=== PATIENT | male | born 1930 | race Caucasian/White ===

== ENCOUNTER 2017-03-02 09:30 | Inpatient (IN) | payer MEDICARE, BC ==
[2017-03-02] MEDS ORDERED: Acetaminophen 325 MG Tab PO PRN (09:46)
[2017-03-02] MEDS ORDERED: Albuterol/Ipratropium 3.0-0.5 MG/3 ML Neb Soln NEB ONE (09:46)
[2017-03-02] MEDS ORDERED: Budesonide 0.5 MG/2 ML Neb Susp NEB ONE (09:46)
--- NOTE | 2017-03-02 09:46 | EDM.PDOC ---
ED HPI GENERAL MEDICAL PROBLEM - General Chief Complaint: General Stated Complaint: fall Time Seen by Provider: 03/02/17 09:40 Source of Information: Reports: Patient, EMS, Family (, daughter), Old Records ([facility] chart/EMR). Denies: EMS Notes Reviewed History Limitations: Reports: Altered Mental Status - History of Present Illness INITIAL COMMENTS - FREE TEXT/NARRATIVE: The patient was brought to the emergency room by ambulance with division sergeant accompaniment with no treatment in route. Note that the patient has had a history of recurrent falls, including at about 01:30 a.m. this morning. This fall was unwitnessed, however no history of head injury, loss of consciousness, seizure activity, change in mental status, etc. with some baseline organic brain syndrome by history. The did call 911 for assistance earlier this morning secondary to progressive low back pain and left hip pain with recent history of T11 vertebral body compression fracture on 01/09/17. The patient is a somewhat poor historian secondary to his baseline mental status with majority of history taken from his and daughter. The patient denies any chest pain/ pressure, heart flutter, dizziness, orthostasis, orthopnea, diaphoresis, paresthesias, recent decreased exercise tolerance, or any other anginal-type symptoms. No recent history of abdominal pain, heartburn, nausea, diarrhea, melena, gross hematochezia, or any food intolerance, including fatty foods, etc.. The patient also denies any recent fever, wheezing, dyspnea, etc. with mild viral bronchitis diagnosed by home health nurse yesterday. Onset: Today Onset Date: 03/02/17 Onset Time: 01:30 Duration: Constant, Getting Worse Location: Reports: Back, Lower Extremity, Left. Denies: Head, Face, Neck, Chest , Abdomen, Pelvis, Upper Extremity, Left, Upper Extremity, Right, Lower Extremity, Right, Radiates to Quality: Reports: Ache, Same as Previous Episode Severity: Moderate Improves with: Reports: Rest Worsens with: Reports: Movement Context: Reports: Trauma (As above) Associated Symptoms: Reports: Confusion (Stable baseline), Cough, cough w sputum (Slightly clear), Loss of Appetite (Chronic), Weakness (Stable chronic). Denies: Chest Pain, Diaphoresis, Fever/Chills, Headaches, Malaise, Nausea/ Vomiting, Seizure, Shortness of Breath, Syncope Treatments CARE SERVICES MANAGER: Reports: Other (see below) (None) Left Hip Pain Score (Numeric/FACES): 6 Lower Back Pain Score (Numeric/FACES): 6 - Related Data Allergies Allergy/AdvReac Type Severity Reaction Status Date / Time No Known Allergies Allergy Verified 03/02/17 09:33 Home Meds: Home Meds Levothyroxine Sodium [Synthroid] 25 mcg PO ACBREAKFAST 03/02/17 [History] Mirtazapine 0.5 tab PO BEDTIME 03/02/17 [History] guaiFENesin 5 ml PO Q6H PRN 03/02/17 [History] traMADol [Ultram] 1 tab PO BID PRN 03/02/17 [History] Past Medical History HEENT History: Reports: Cataract, Hard of Hearing, Impaired Vision, Macular Degeneration, Other (See Below). 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 Denies: Afib, Aneurysm, Arrhythmia, Blood Clots/VTE/DVT, CAD, Cardiomyopathy, Heart Failure, Heart Murmur, Hypertension, OH, PVD, Syncope Other Cardiovascular History: Hyperlipidemia under therapy Respiratory History: Reports: Bronchitis, Recurrent, COPD, Pneumonia, Recurrent. Denies: Asthma, Pneumothorax, Sleep Apnea, TB Gastrointestinal History: Reports: Celiac Disease, Diverticulosis, Gastritis, GERD, PUD, Other (See Below). Denies: Bowel Obstruction, Cholelithiasis, Chronic Constipation, Chronic Diarrhea, Colon Polyp, GI Bleed, Hepatitis, Helicobacter Pylori, Hiatal Hernia, Inflammatory Bowel Disease, Irritable Bowel Syndrome, Jaundice, Pancreatitis Other Gastrointestinal History: Peptic ulcer disease by EGD in April 2009 as below with negative gastric biopsy for H. pylori; additional diverticulosis and history of diverticulitis, borderline dysphagia with patient having trouble swallowing pills Genitourinary History: Reports: BPH, Renal Calculus, Other (See Below). Denies : Acute Renal Failure, Chronic Renal Insuffiency, Dialysis, Retention, Urinary, Urinary Incontinence, UTI, Recurrent Other Genitourinary History: Urolithiasis in his late 20s or early 30s with spontaneous passage Musculoskeletal History: Reports: Arthritis, Back Pain, Chronic, Fracture, Osteoarthritis, Osteoporosis, Other (See Below). 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 Denies: Cerebral Aneurysms, Concussion, CVA, Headaches, Chronic, Head Trauma, Migraines, MS, Parkinson's, Seizure, TIA Psychiatric History: Reports: Anxiety, Dementia, Depression, Other (See Below). Denies: Abuse, Victim of, ADD, ADHD, Addiction, Psych Hospitalization(s), PTSD , Suicide Attempt, Suicidal Ideation Other Psychiatric History: Note chronic Ultram use usually at bedtime Endocrine/Metabolic History: Reports: Hypothyroidism. Denies: Diabetes, Type I , Diabetes, Type II, IDDM, Osteoporosis Hematologic History: Reports: Anemia. Denies: Blood Transfusion(s), Iron Deficiency Other Hematologic History: Anemia and thrombocytopenia Immunologic History: Reports: None. Denies: AIDS, HIV, SLE Oncologic (Cancer) History: Reports: None. Denies: Basal Cell Carcinoma, Colon , Hodgkin's Lymphoma, Leukemia, Lymphoma, Malignant Melanoma, Non-Hodgkin's Lymphoma, Prostate, Squamous Cell Carcinoma Dermatologic History: Denies: Eczema, Psoriasis - Infectious Disease History Infectious Disease History: Reports: Chicken Pox, Mumps. Denies: C-Difficile, Helicobacter Pylori (Negative gastric biopsy as above), Measles, Meningitis, Mononucleosis, MRSA, Pertussis (Whooping Cough), Rheumatic Fever, Rubella, Scarlet Fever, Shingles, VRE - Past Surgical History Head Surgeries/Procedures: Reports: None HEENT Surgical History: Reports: Cataract Surgery, Oral Surgery, Other (See Below). Denies: Adenoidectomy, Eye Surgery, Laser Surgery, LASIK, Naso-Sinus Surgery, Tonsillectomy Other HEENT Surgeries/Procedures: Bilateral cataract surgery in about 2010, multiple teeth extractions with partial upper dentures Cardiovascular Surgical History: Reports: None. Denies: Varicose Respiratory Surgical History: Reports: None. Denies: Lung Biopsies, Thoracentesis GI Surgical History: Reports: Colonoscopy, EGD, Other (See Below). Denies: Appendectomy, Cholecystectomy, Hernia, Abdominal, Hernia, Inguinal, Hernia Repair/Other, Polypectomy Other GI Surgeries/Procedures: EGD and colonoscopy on 04/30/09 Male Surgical History: Reports: None. Denies: Circumcision, TURP- Transurethral Resection of Prostate, Vasectomy Endocrine Surgical History: Reports: None. Denies: Thyroid Biopsy Neurological Surgical History: Denies: C-Spine, Discectomy, Laminectomy, Lumbar Spine, Spinal Fusion, Vertebroplasty Musculoskeletal Surgical History: Reports: None. Denies: Arthroscopic Procedure , Carpal Tunnel, Ganglion Cyst, Hip Replacement, Joint Replacement, ORIF, Shoulder Surgery Oncologic Surgical History: Reports: None Dermatological Surgical History: Reports: None - Past Imaging History Past Imaging History: Reports: MRI (Thoracic and lumbar spine on 01/16/17) Social & Family History - Family History HEENT: Reports: Macular Degeneration, Other (See Below). Denies: Glaucoma, Retinal Detachment Other HEENT Family History: Father with macular degeneration Cardiac: Reports: None. Denies: Aneurysm, Arrhythmia, Blood Clots/VTE/DVT, CAD , Heart Failure, High Cholesterol, Hypertension, OH, Pacemaker, PVD/COD, Syncope Respiratory: Reports: None. Denies: Asthma, COPD, PE, Pneumothorax, Sleep Apnea GI: Reports: None. Denies: Celiac Disease, Colon Polyps, GERD, GI bleed, Inflammatory Bowel Disease, Irritable Bowel Syndrome, PUD : Reports: None. Denies: Dialysis, Renal Calculus, Renal Disease/ Insufficiency OBGYN: Reports: None. Denies: Endometriosis, Fibroids, Recurrent Spontaneous Musculoskeletal: Reports: None. Denies: Gout, RA, SLE Neurological: Reports: None. Denies: Alzheimers Disease, Cerebral Aneurysms, CVA, Dementia, Migraines, MS, Seizure, TIA Psychiatric: Reports: None. Denies: Abuse, Victim of, ADD, ADHD, Anxiety, Depression, Psych Hospitalization(s), PTSD, Suicide Attempt Endocrine/Metabolic: Reports: None. Denies: Diabetes, Type I, Diabetes, type II , Hypothyroidism, IDDM Hematologic: Reports: Anemia, Other (See Below). Denies: SLE Other Hematologic Family History: Father and Daughter with anemia Immunologic: Reports: None. Denies: AIDS, HIV, SLE Dermatologic: Reports: None. Denies: Eczema, Psoriasis Oncologic: Reports: Leukemia, Lymphoma, Other (See Below). Denies: Breast, Colon, Prostate Other Oncologic Family History: Father with fatal leukemia in his 80s, sister with fatal lymphoma in in her 80s - Tobacco Use Smoking Status *Q: Former Smoker Years of Tobacco use: 20 Packs/Tins Daily: 1 (Occasional pipe use with discontinuation of tobacco use in 1968) Used Tobacco, but Quit: Yes Smoking Cessation Information Provided To Patient: No Second Hand Smoke Exposure: No Second Hand Smoke Education Provided: No - Caffeine Use Caffeine Use: Reports: Coffee (One cup per day), Tea (2 glasses per day). Denies: Energy Drinks, Soda - Alcohol Use Alcohol Use History: No Days Per Week of Alcohol Use: 0 (No previous DWIs, problems with alcohol abuse, etc.) Alcohol Use in Last Twelve Months: No - Recreational Drug Use Recreational Drug Use: No Drug Use in Last 12 Months: No Recreational Drug Type: Denies: Amphetamines (Speed), Cocaine, Inhalants (Glues , Solvents, Aerosols), LSD (Acid), Marijuana/Hashish, Methamphetamine - Living Situation & Occupation Living situation: Reports: (89, 3 children), with Family () Occupation: Retired (Retired 1989 from [employer]) ED ROS GENERAL - Review of Systems Review Of Systems: See Below Constitutional: Reports: Weakness (Stable chronic), Fatigue (Stable chronic), Decreased Appetite (Last couple of months), Weight Loss (nonintentional weight loss during the last couple years but amount unknown). Denies: Fever, Chills HEENT: Reports: Glasses, Hearing Loss, Rhinitis. Denies: Dental Pain, Ear Discharge, Ear Pain, Eye Pain, Sinus Problem, Throat Pain, Throat Swelling, Vertigo, Vision Change Respiratory: Reports: Shortness of Breath, Cough, Sputum (Clear). Denies: Wheezing, Pleuritic Chest Pain Cardiovascular: Denies: Chest Pain, Blood Pressure Problem, Claudication, Dyspnea on Exertion, Lightheadedness, Orthopnea, Palpitations, PND, Syncope Endocrine: Reports: Fatigue (Stable chronic) GI/Abdominal: Reports: No Symptoms. Denies: Abdominal Pain, Anorexia, Black Stool, Bloody Stool, Constipation, Diarrhea, Decreased Appetite, Distension, Flatus, Hematemesis, Hematochezia, Melena, Nausea, Stool Incontinence, Vomiting : Reports: No Symptoms. Denies: Discharge, Dysuria, Flank Pain, Frequency, Hematuria, Incontinence, Pain, Urgency, Urinary Retention Musculoskeletal: Reports: Back Pain, Joint Pain. Denies: Neck Pain, Shoulder Pain, Arm Pain, Leg Pain, Foot Pain, Joint Swelling Skin: Reports: No Symptoms. Denies: Diaphoresis, Bruising, Wound Neurological: Reports: Confusion (Stable chronic), Difficulty Walking (Stable chronic), Weakness (Stable chronic). Denies: Dizziness, Headache, Numbness, Paresthesia, Seizure, Tingling, Tremors, Trouble Speaking Psychiatric: Reports: Confusion (Stable chronic). Denies: Agitation, Anxiety, Cravings, Depression, Hallucinations, Homicidal Ideation, Suicidal Ideation Hematologic/Lymphatic: Reports: No Symptoms Immunologic: Reports: No Symptoms ED EXAM, GENERAL - Physical Exam Exam: See Below Exam Limited By: No Limitations General Appearance: Alert, WD/WN, No Apparent Distress, Other (Mild cachexia) Eye Exam: Bilateral Eye: EOMI, Normal Fundi, Normal Inspection (Mild bilateral arcus senilis, no nystagmus), PERRL Ears: Normal External Exam, Normal Canal, Normal TMs, Hearing Loss (Stable by history bilateral presbycusis but no hearing aids) Nose: Normal Mucosa, No Blood, Clear Rhinorrhea (Mild) Throat/Mouth: Normal Inspection, Normal Lips, Normal Gums, Normal Oropharynx, Normal Voice, No Airway Compromise. No: Normal Teeth (Partial upper dentures), Dysphagia, Perioral Cyanosis Head: Atraumatic, Normocephalic. No: Facial Swelling, Facial Tenderness, Sinus Tenderness Neck: Supple, Non-Tender, Full Range of Motion, Carotid Bruit (Mild bilateral carotid bruits). No: Lymphadenopathy (L), Lymphadenopathy (R), Thyromegaly Respiratory/Chest: No Respiratory Distress, No Accessory Muscle Use, Chest Non- Tender, Rales (Moderate diffuse bilateral), Rhonchi (Occasional bilateral), Wheezing (Additional bilateral). No: Stridor, Pleural Rub, Retractions Cardiovascular: No Edema, No Gallop, No JVD, No Murmur, No Rub, Tachycardia ( Regular rhythm). No: Gallop/S3, Gallop/S4, Friction Rub Peripheral Pulses: 2+: Radial (L), Radial (R), Dorsalis Pedis (L), Dorsalis Pedis (R) GI/Abdominal: Normal Bowel Sounds, Soft, Non-Tender, No Organomegaly, No Distention, No Abnormal Bruit, No Mass, Pelvis Stable (Male) Exam: Deferred Rectal (Males) Exam: Normal Rectal Tone, Deferred, BPH (Mild), Heme - Stool, Tenderness (No Ambrocio space tenderness). No: Black Stool, Fecal Impaction, Mass, Rectal Fissure Back Exam: Decreased Range of Motion, Paraspinal Tenderness (Mild lower thoracic and upper lumbar). No: CVA Tenderness (L), CVA Tenderness (R), Muscle Spasm, Vertebral Tenderness Extremities: Normal Inspection, Normal Range of Motion, Non-Tender, No Pedal Edema, Normal Capillary Refill. No: Leg Pain (Including left hip) Neurological: Alert, CN II-XII Intact, Normal Reflexes (Negative Babinski's), No Motor/Sensory Deficits, Confused (Stable mild organic brain syndrome by history) Psychiatric: Normal Affect, Normal Mood Skin Exam: Warm, Dry, Intact, Normal Color, No Rash. No: Diaphoretic, Wound/ Incision Lymphatic: No Adenopathy EKG INTERPRETATION EKG Date: 03/02/17 Time: 09:53 Rhythm: Other (Sinus tachycardia) Rate (Beats/Min): 103 [place]: Normal P-Wave: Present (Mild diffuse biphasic with pulmonary hypertension by EKG) QRS: Normal (QRS interval of 0.08 seconds with T-wave inversion in lead V1 with possible extension to lead V2 since last EKG) ST-T: Other (Questionable anterior ischemia) QT: Normal MN/PQ Interval: 0.13 seconds representing a short MN interval but no delta waves noted Comparison: Change From Previous EKG (As above since 04/17/09) EKG Interpretation Comments: 1. Questionable anterior wall cardiac ischemia 2. Sinus tachycardia 3. Short MN interval 4. Pulmonary hypertension by EKG Course - Vital Signs Last Recorded V/S: Last Vital Signs Temp 37.9 C 03/02/17 12:29 Pulse 103 H 03/02/17 12:29 Resp 20 03/02/17 12:29 BP 96/65 03/02/17 12:29 Pulse Ox 99 03/02/17 12:29 Vital Signs - 24 hr 03/02/17 03/02/17 03/02/17 09:30 09:32 09:40 Temperature [ 37.9 C Axillary] Pulse, Peripheral Pulse, 101 H 102 H Peripheral [ Right Pulse Oximetry] Respiratory 20 20 20 Rate Blood Pressure Blood Pressure 115/72 122/66 [Right Upper Arm] O2 Sat by Pulse 77 L 88 L 92 L Oximetry 03/02/17 03/02/17 03/02/17 09:55 11:00 11:14 Temperature [ Axillary] Pulse, Peripheral Pulse, 104 H 110 H 118 H Peripheral [ Right Pulse Oximetry] Respiratory 20 24 H 20 Rate Blood Pressure Blood Pressure 112/62 100/62 100/58 L [Right Upper Arm] O2 Sat by Pulse 94 L 96 95 Oximetry 03/02/17 03/02/17 03/02/17 11:30 11:44 11:59 Temperature [ Axillary] Pulse, Peripheral Pulse, 116 H 117 H 118 H Peripheral [ Right Pulse Oximetry] Respiratory 24 H 20 20 Rate Blood Pressure Blood Pressure 116/72 94/80 104/60 [Right Upper Arm] O2 Sat by Pulse 94 L 98 94 L Oximetry 03/02/17 03/02/17 03/02/17 12:15 12:24 12:29 Temperature [ 37.9 C Axillary] Pulse, 120 H Peripheral Pulse, 123 H 103 H Peripheral [ Right Pulse Oximetry] Respiratory 20 20 Rate Blood Pressure 101/58 L Blood Pressure 101/58 L 96/65 [Right Upper Arm] O2 Sat by Pulse 99 99 Oximetry - Orders/Labs/Meds Orders: Active Orders 24 hr Category Date Time Status Cardiac Monitoring [RC] CONTINUOUS Care 03/02/17 09:46 Active Communication Order [RC] ROUTINE Care 03/02/17 09:46 Active EKG Documentation Completion [RC] ASDIRECTED Care 03/02/17 09:50 Active Oxygen Therapy, ED [RC] CONTINUOUS Care 03/02/17 09:46 Active Peripheral IV Care [RC] . DIRECTED Care 03/02/17 09:50 Active Pulse Oximetry [RC] CONTINUOUS Care 03/02/17 09:46 Active Up With Assistance [RC] ASDIRECTED Care 03/02/17 09:46 Active Nothing Per Oral Diet [DIET] Diet 03/02/17 Breakfast Active Chest 1V Frontal [CR] Stat Exams 03/02/17 09:46 Taken Hip Min 2V or 3V w Pelvis Lt [CR] Stat Exams 03/02/17 09:52 Taken Lumbar Spine 2 or 3V [CR] Stat Exams 03/02/17 09:54 Taken CULTURE BLOOD [BC] Stat Lab 03/02/17 10:05 Received CULTURE BLOOD [BC] Stat Lab 03/02/17 11:00 Received CULTURE SPUTUM + SMEAR [RM] Urgent Lab 03/02/17 11:00 Received Acetaminophen [Tylenol] Med 03/02/17 09:46 Active 650 mg PO Q4H PRN Pantoprazole [ProTONIX IV] Med 03/02/17 11:15 Active 40 mg IVPUSH Q12H Piperacillin/Tazobactam [Zosyn] 3.375 gm Med 03/02/17 11:00 Active Sodium Chloride 0.9% [Normal Saline] 100 ml IV Q6H Sodium Chloride 0.9% [Saline Flush] Med 03/02/17 09:46 Active 10 ml FLUSH ASDIRECTED PRN Blood Culture x2 Reflex Set [OM.PC] Stat Ot 03/02/17 09:46 Ordered Obtain Past Medical Record [OM.PC] Stat Oth 03/02/17 09:46 Active Peripheral IV Insertion Adult [OM.PC] Stat Oth 03/02/17 09:46 Ordered Resuscitation Status Routine Resus Stat 03/02/17 09:46 Ordered Medication Orders Acetaminophen (Tylenol) 650 mg PO Q4H PRN PRN Reason: Pain/Fever Piperacillin Sod/Tazobactam (Sod 3.375 gm/ Sodium Chloride) 100 mls @ 200 mls/ hr IV Q6H [facility] Last Admin: 03/02/17 12:18 Dose: 200 mls/hr Metronidazole 500 mg/ Premix 100 mls @ 100 mls/hr IV Q8H [facility] Pantoprazole Sodium (Protonix Iv) 40 mg IVPUSH Q12H [facility] Last Admin: 03/02/17 11:54 Dose: 40 mg Sodium Chloride (Saline Flush) 10 ml FLUSH ASDIRECTED PRN PRN Reason: Keep Vein Open Last Admin: 03/02/17 12:07 Dose: 10 ml Labs: Laboratory Tests 03/02/17 03/02/17 03/02/17 Range/Units 10:05 10:05 10:05 WBC 14.4 H (4.0-10.2) K/uL RBC 2.55 L (4.33-5.41) M/uL Hgb 8.7 L (13.1-16.8) g/dL Hct 26.8 L (39.0-49.0) % MCV 105.1 H (84.0-98.0) fL MCH 34.1 H (28.2-33.3) pg MCHC 32.5 (31.7-36.0) g/dL RDW 14.1 (11.2-14.1) % Plt Count 191 (150-350) K/uL Neut % (Auto) 88.7 H (45.0-80.0) % Lymph % (Auto) 6.0 L (10.0-50.0) % [place] % (Auto) 5.1 (2.0-14.0) % Eos % (Auto) 0.1 (0.0-5.0) % Baso % (Auto) 0.1 (0.0-2.0) % Neut # (Auto) 12.78 H (1.40-7.00) K/uL Lymph # (Auto) 0.86 (0.50-3.50) K/uL [place] # (Auto) 0.73 (0.00-1.00) K/uL Eos # (Auto) 0.01 (0.00-0.50) K/uL Baso # (Auto) 0.02 (0.00-0.20) K/uL D-Dimer, Quantitative > 5000 H (0-400) ng/mL Sodium 137 (136-145) mmol/L Potassium 3.5 (3.5-5.1) mmol/L Chloride 102 (98-107) mmol/L Carbon Dioxide 24.3 (21.0-32.0) mmol/L BUN 25 H (7-18) mg/dL Creatinine 1.21 H (0.51-1.17) mg/dL Est Cr Clr Drug Dosing TNP Estimated GFR (MDRD) 57 mL/min Glucose 109 H (74-106) mg/dL Lactic Acid (0.4-2.0) mmol/L Calcium 9.2 (8.5-10.1) mg/dL Magnesium 2.2 (1.8-2.4) mg/dL Total Bilirubin 1.1 H (0.2-1.0) mg/dL AST 35 (15-37) U/L ALT 20 (12-78) U/L Alkaline Phosphatase 75 (46-116) IU/L Creatine Kinase 524 H (26-308) U/L Creatine Kinase Index 0.1 (0.0-2.5) % CK-MB (CK-2) 0.50 (0.00-3.60) ng/mL Troponin I 0.012 (0.000-0.056) ng/mL NT-Pro-B Natriuret Pep 1032 H (0-125) pg/mL Total Protein 7.3 (6.4-8.2) g/dL Albumin 3.3 L (3.4-5.0) g/dL TSH, Ultra Sensitive 1.568 (0.358-3.740) mIU/mL 03/02/17 Range/Units 10:05 WBC (4.0-10.2) K/uL RBC (4.33-5.41) M/uL Hgb (13.1-16.8) g/dL Hct (39.0-49.0) % MCV (84.0-98.0) fL MCH (28.2-33.3) pg MCHC (31.7-36.0) g/dL RDW (11.2-14.1) % Plt Count (150-350) K/uL Neut % (Auto) (45.0-80.0) % Lymph % (Auto) (10.0-50.0) % [place] % (Auto) (2.0-14.0) % Eos % (Auto) (0.0-5.0) % Baso % (Auto) (0.0-2.0) % Neut # (Auto) (1.40-7.00) K/uL Lymph # (Auto) (0.50-3.50) K/uL [place] # (Auto) (0.00-1.00) K/uL Eos # (Auto) (0.00-0.50) K/uL Baso # (Auto) (0.00-0.20) K/uL D-Dimer, Quantitative (0-400) ng/mL Sodium (136-145) mmol/L Potassium (3.5-5.1) mmol/L Chloride (98-107) mmol/L Carbon Dioxide (21.0-32.0) mmol/L BUN (7-18) mg/dL Creatinine (0.51-1.17) mg/dL Est Cr Clr Drug Dosing Estimated GFR (MDRD) mL/min Glucose (74-106) mg/dL Lactic Acid 1.7 (0.4-2.0) mmol/L Calcium (8.5-10.1) mg/dL Magnesium (1.8-2.4) mg/dL Total Bilirubin (0.2-1.0) mg/dL AST (15-37) U/L ALT (12-78) U/L Alkaline Phosphatase (46-116) IU/L Creatine Kinase (26-308) U/L Creatine Kinase Index (0.0-2.5) % CK-MB (CK-2) (0.00-3.60) ng/mL Troponin I (0.000-0.056) ng/mL NT-Pro-B Natriuret Pep (0-125) pg/mL Total Protein (6.4-8.2) g/dL Albumin (3.4-5.0) g/dL TSH, Ultra Sensitive (0.358-3.740) mIU/mL Blood cultures 2 collected Microbiology 03/02/17 11:00 Stool Occult Blood (CHETNA) - Final Stool / Feces NEGATIVE OCCULT BLOOD 03/02/17 10:00 Influenza Type A Antigen Screen - Final Nasal Aspirate, Left NEGATIVE INFLUENZA A VIRUS AG Influenza Type B Antigen Screen - Final NEGATIVE INFLUENZA B VIRUS AG Meds: Medications Generic Name Dose Route Start Last Admin Trade Name Freq PRN Reason Stop Dose Admin Acetaminophen 650 mg 03/02/17 09:46 Tylenol PO Q4H PRN Pain/Fever Piperacillin Sod/Tazobactam 100 mls @ 200 mls/hr 03/02/17 11:00 03/02/17 12: 18 Sod 3.375 gm/ Sodium Chloride IV 200 mls/hr Q6H DERRICK Administration Metronidazole 500 mg/ Premix 100 mls @ 100 mls/hr 03/02/17 12:30 IV Q8H DERRICK Pantoprazole Sodium 40 mg 03/02/17 11:15 03/02/17 11:54 Protonix Iv IVPUSH 40 mg Q12H DERRICK Administration Sodium Chloride 10 ml 03/02/17 09:46 03/02/17 12:07 Saline Flush FLUSH 10 ml ASDIRECTED PRN Administration Keep Vein Open Discontinued Medications Generic Name Dose Route Start Last Admin Trade Name Freq PRN Reason Stop Dose Admin Albuterol/Ipratropium 3 ml 03/02/17 09:46 03/02/17 10:30 Duoneb 3.0-0.5 Mg/3 Ml NEB 03/02/17 09:47 3 ml ONETIME ONE Administration Budesonide 0.5 mg 03/02/17 09:46 03/02/17 10:40 Pulmicort NEB 03/02/17 09:47 0.5 mg ONETIME ONE Administration Famotidine 40 mg 03/02/17 11:09 03/02/17 11:47 Pepcid IVPUSH 03/02/17 11:10 40 mg ONETIME ONE Administration Furosemide 60 mg 03/02/17 11:09 03/02/17 11:55 Lasix IVPUSH 03/02/17 11:10 60 mg NOW ONE Administration Metoprolol Tartrate 2.5 mg 03/02/17 12:20 03/02/17 12:24 Lopressor IVPUSH 03/02/17 12:21 2.5 mg ONETIME ONE Administration - Radiology Interpretation Free Text/Narrative:: accountant cost shows normal sinus rhythm with heart rate in the 100s to 110s with no ectopy or arrhythmia Chest x-ray, portable, shows evidence of moderate COPD and pulmonary fibrotic changes including probable moderate centralized CHF and/or pulmonary hypertension. Additional pulmonary infiltrates cannot be ruled out. No cardiomegaly however moderate prominence of the proximal aortic arch. No pneumothorax X-rays of the pelvis, one view, and lateral views of the left hip shows no evidence of fracture with moderate bilateral coxarthrosis X-rays of the lumbar spine, 3 views, shows evidence of severe osteoporosis with moderate to severe osteoarthritic changes and mild vertebral body compression fractures but no acute fractures noted Departure - Departure Time of Disposition: 12:55 Disposition: Admitted As Inpatient 65 Condition: Fair Clinical Impression: D-dimer, elevated, Comfort measures only status, Renal insufficiency, Hypoalbuminemia, Peptic reflux disease, Organic brain syndrome, Elevated CK, Hyperbilirubinemia CHF (congestive heart failure) Qualifiers: Congestive heart failure type: unspecified congestive heart failure type Congestive heart failure chronicity: acute Qualified Code(s): I50.9 - Heart failure, unspecified Pneumonia Qualifiers: Pneumonia type: due to unspecified organism Laterality: bilateral Lung location : unspecified part of lung Qualified Code(s): J18.9 - Pneumonia, unspecified organism Osteoarthritis Qualifiers: Osteoarthritis location: multiple joints Osteoarthritis type: primary Qualified Code(s): M15.0 - Primary generalized (osteo)arthritis Anemia Qualifiers: Anemia type: unspecified type Qualified Code(s): D64.9 - Anemia, unspecified Hypothyroidism Qualifiers: Hypothyroidism type: acquired Qualified Code(s): E03.9 - Hypothyroidism, unspecified Hyperlipidemia Qualifiers: Hyperlipidemia type: unspecified Qualified Code(s): E78.5 - Hyperlipidemia, unspecified - Discharge Information - Problem List & Annotations (1) CHF (congestive heart failure) SNOMED Code(s): 52034220 Code(s): I50.9 - HEART FAILURE, UNSPECIFIED Status: Acute Priority: High Current Visit: Yes Onset Date: 03/02/17 Annotation/Comment:: Moderate CHF by clinical exam, blood work, and x-ray with high-dose IV Lasix initiated in the emergency room. No chest pain or anginal symptoms with chest pain protocol not initiated in the emergency room. Admit to inpatient/acute care with continuation of aggressive IV Lasix therapy with caution secondary to his renal insufficiency. [facility] [place] in the a.[place]. Note that patient is comfort care only, which was confirmed both by his and his daughter. No transfer to [place] or other aggressive treatment measures. Note echocardiogram, etc. secondary to his comfort care status Qualifiers: Congestive heart failure type: unspecified congestive heart failure type Congestive heart failure chronicity: acute Qualified Code(s): I50.9 - Heart failure, unspecified (2) Pneumonia SNOMED Code(s): 768196220 Code(s): J18.9 - PNEUMONIA, UNSPECIFIED ORGANISM Status: Acute Priority: High Current Visit: Yes Onset Date: ~02/28/17 Annotation/Comment:: Progressive cough during the last couple of days with patient febrile and evidence of clinical pneumonia including WBCs elevation. Blood cultures 2 were collected. Sputum specimen was also collected in the emergency room. Triple nebulizer treatment given in the emergency room with initiation of IV Zosyn. Secondary to history of questionable borderline dysphagia additional IV Flagyl will be initiated, although no direct history of aspiration. Continue nebulizer therapy, etc. Known history of COPD with no medications at home to this point. Continue home health through public health at discharge Qualifiers: Pneumonia type: due to unspecified organism Laterality: bilateral Lung location: unspecified part of lung Qualified Code(s): J18.9 - Pneumonia, unspecified organism (3) D-dimer, elevated SNOMED Code(s): 871115962 Code(s): R79.89 - OTHER SPECIFIED ABNORMAL FINDINGS OF BLOOD CHEMISTRY Status: Acute Priority: High Current Visit: Yes Onset Date: 03/02/17 Annotation/Comment:: No direct clinical evidence of DVT or PE. Ultrasound is not available today. CTA of the chest to be conducted with caution secondary to his renal insufficiency. Lovenox will be held for now secondary to patient's significant anemia, although negative Hemoccult as above. (4) Comfort measures only status SNOMED Code(s): 40777946637144 Code(s): Z51.5 - ENCOUNTER FOR PALLIATIVE CARE Status: Chronic Priority: Medium Current Visit: Yes Annotation/Comment:: As above (5) Osteoarthritis SNOMED Code(s): 084618307 Code(s): M19.90 - UNSPECIFIED OSTEOARTHRITIS, UNSPECIFIED SITE Status: Chronic Priority: High Current Visit: Yes Annotation/Comment:: Low back pain with recent T11 vertebral body compression fracture as above. Additional nonspecific left hip pain with no evidence of acute fractures by x-rays as above. Note moderate coxarthrosis bilaterally. Symptomatic relief for now. Note significant osteoporosis with consideration of initiation of calcium, vitamin D , etc. by his regular providers. His osteoarthritis has otherwise been stable Qualifiers: Osteoarthritis location: multiple joints Osteoarthritis type: primary Qualified Code(s): M15.0 - Primary generalized (osteo)arthritis (6) Renal insufficiency SNOMED Code(s): 173751248 Code(s): N28.9 - DISORDER OF KIDNEY AND URETER, UNSPECIFIED Status: Acute Priority: Medium Current Visit: Yes Onset Date: 03/02/17 Annotation/ Comment:: Newly diagnosed mild renal insufficiency. Observe closely secondary to IV Lasix therapy (7) Hypoalbuminemia SNOMED Code(s): 155388365 Code(s): E88.09 - OTH DISORDERS OF PLASMA-PROTEIN METABOLISM, NEC Status: Acute Priority: High Current Visit: Yes Onset Date: 03/02/17 Annotation/ Comment:: High-protein Glucerna supplements with snacks. Note history of unintentional weight loss during the last couple of years with borderline anorexia. Dietary consultation should be considered (8) Anemia SNOMED Code(s): 227707141 Code(s): D64.9 - ANEMIA, UNSPECIFIED Status: Chronic Priority: High Current Visit: Yes Annotation/Comment:: Baseline hemoglobin unknown. Significant anemia today. Further workup during this hospitalization with blood work tomorrow. Note Hemoccult negative today with no evidence of acute GI bleed Qualifiers: Anemia type: unspecified type Qualified Code(s): D64.9 - Anemia, unspecified (9) Hypothyroidism SNOMED Code(s): 19758370 Code(s): E03.9 - HYPOTHYROIDISM, UNSPECIFIED Status: Chronic Priority: Medium Current Visit: Yes Annotation/Comment:: TSH normal today Qualifiers: Hypothyroidism type: acquired Qualified Code(s): E03.9 - Hypothyroidism, unspecified (10) Hyperlipidemia SNOMED Code(s): 08360636 Code(s): E78.5 - HYPERLIPIDEMIA, UNSPECIFIED Status: Chronic Priority: Medium Current Visit: Yes Annotation/Comment:: No therapy to this point. 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 Attempt to discontinue this medication during this phase of hospitalization with regularly scheduled Tylenol for now additional topical therapy (12) Peptic reflux disease SNOMED Code(s): 21297016 Code(s): K21.9 - GASTRO-ESOPHAGEAL REFLUX DISEASE WITHOUT ESOPHAGITIS Status: Chronic Priority: Medium Current Visit: Yes Annotation/Comment:: Stable by history. High-dose IV Pepcid and IV Protonix therapy initiated in the emergency room as GI prophylaxis. Note significant anemia as above. No current abdominal complaints (13) Elevated CK SNOMED Code(s): 861541746 Code(s): R74.8 - ABNORMAL LEVELS OF OTHER SERUM ENZYMES Status: Acute Priority: High Current Visit: Yes Onset Date: 03/02/17 Annotation/Comment: : Elevated CK likely secondary to recent fall with no direct evidence of rhabdomyolysis. Secondary to patient's significant CHF only low-dose IV fluids for now. Continue to observe his renal status, etc. closely. Note CK MB is normal with only mildly elevated troponin I secondary to CHF and renal disease (14) Hyperbilirubinemia SNOMED Code(s): 81053443 Code(s): E80.6 - OTHER DISORDERS OF BILIRUBIN METABOLISM Status: Acute Priority: Medium Current Visit: Yes Onset Date: 03/02/17 Annotation/ Comment:: Borderline hyperbilirubinemia. Direct and indirect bilirubin with next set of blood work - Problem List Review Problem List Initiated/Reviewed/Updated: Yes - My Orders Last 24 Hours: My Active Orders 03/02/17 09:46 Cardiac Monitoring [RC] CONTINUOUS Communication Order [RC] ROUTINE Oxygen Therapy, ED [RC] CONTINUOUS Pulse Oximetry [RC] CONTINUOUS Up With Assistance [RC] ASDIRECTED Chest 1V Frontal [CR] Stat Acetaminophen [Tylenol] 650 mg PO Q4H PRN Sodium Chloride 0.9% [Saline Flush] 10 ml FLUSH ASDIRECTED PRN Blood Culture x2 Reflex Set [OM.PC] Stat Obtain Past Medical Record [OM.PC] Stat Peripheral IV Insertion Adult [OM.PC] Stat Resuscitation Status Routine 03/02/17 09:50 EKG Documentation Completion [RC] ASDIRECTED Peripheral IV Care [RC] . DIRECTED 03/02/17 09:52 Hip Min 2V or 3V w Pelvis Lt [CR] Stat 03/02/17 09:54 Lumbar Spine 2 or 3V [CR] Stat 03/02/17 10:05 CULTURE BLOOD [BC] Stat 03/02/17 11:00 CULTURE BLOOD [BC] Stat CULTURE SPUTUM + SMEAR [RM] Urgent Piperacillin/Tazobactam [Zosyn] 3.375 gm Sodium Chloride 0.9% [Normal Saline] 100 ml IV Q6H 03/02/17 11:15 Pantoprazole [ProTONIX IV] 40 mg IVPUSH Q12H 03/02/17 Breakfast Nothing Per Oral Diet [DIET] - Assessment/Plan Admission H&P: Please use this note as an admission H&P Last 24 Hours: My Active Orders 03/02/17 09:46 Cardiac Monitoring [RC] CONTINUOUS Communication Order [RC] ROUTINE Oxygen Therapy, ED [RC] CONTINUOUS Pulse Oximetry [RC] CONTINUOUS Up With Assistance [RC] ASDIRECTED Chest 1V Frontal [CR] Stat Acetaminophen [Tylenol] 650 mg PO Q4H PRN Sodium Chloride 0.9% [Saline Flush] 10 ml FLUSH ASDIRECTED PRN Blood Culture x2 Reflex Set [OM.PC] Stat Obtain Past Medical Record [OM.PC] Stat Peripheral IV Insertion Adult [OM.PC] Stat Resuscitation Status Routine 03/02/17 09:50 EKG Documentation Completion [RC] ASDIRECTED Peripheral IV Care [RC] . DIRECTED 03/02/17 09:52 Hip Min 2V or 3V w Pelvis Lt [CR] Stat 03/02/17 09:54 Lumbar Spine 2 or 3V [CR] Stat 03/02/17 10:05 CULTURE BLOOD [BC] Stat 03/02/17 11:00 CULTURE BLOOD [BC] Stat CULTURE SPUTUM + SMEAR [RM] Urgent Piperacillin/Tazobactam [Zosyn] 3.375 gm Sodium Chloride 0.9% [Normal Saline] 100 ml IV Q6H 03/02/17 11:15 Pantoprazole [ProTONIX IV] 40 mg IVPUSH Q12H 03/02/17 Breakfast Nothing Per Oral Diet [DIET] Assessment:: As above Plan: As above. Extensive precautions were given to the patient and his family, who are in agreement with the treatment plan. The patient will require about 3-4 days of inpatient/acute care secondary to multiple health problems as above. [facility] [place] in the a.[place].
[2017-03-02 10:41] LABS: CHLORIDE,CL 102 mmol/L (98-107); SODIUM,NA 137 mmol/L (136-145)
[2017-03-02] MEDS ORDERED: Furosemide 40 MG/4 ML VIAL IVPUSH ONE (11:09)
[2017-03-02] MEDS ORDERED: Famotidine 20 MG/2 ML SDV IVPUSH ONE (11:09)
[2017-03-02] MEDS: Pantoprazole 40 MG Vial IVPUSH SCH ×2 (11:54→23:04)
[2017-03-02] MEDS: Sodium Chloride 0.9% 10 ML Syringe FLUSH PRN ×6 (12:07→23:06)
[2017-03-02] MEDS: Piperacillin/Tazobactam 3.375 GM in Sodium Chloride 0.9% 100 ML IV SCH ×3 (12:18→23:04)
[2017-03-02] MEDS ORDERED: Metoprolol Tartrate 5 MG/5 ML SDV IVPUSH ONE (12:20)
[2017-03-02] MEDS ORDERED: Temazepam 15 MG Cap PO PRN (13:43)
[2017-03-02] MEDS ORDERED: Sodium Chloride 0.9% 10 ML Syringe FLUSH PRN (13:43)
[2017-03-02] MEDS ORDERED: Albuterol/Ipratropium 3.0-0.5 MG/3 ML Neb Soln NEB PRN (13:59)
[2017-03-02] MEDS ORDERED: Iopamidol 755 Mg/ML 100 ML Bottle IVPUSH ONE (14:00)
[2017-03-02] MEDS ORDERED: Enoxaparin 60 MG/0.6 ML Syringe SUBCUT SCH (14:00)
[2017-03-02] MEDS: Albuterol/Ipratropium 3.0-0.5 MG/3 ML Neb Soln NEB SCH ×3 (15:05→20:35)
[2017-03-02] MEDS: metroNIDAZOLE/Normal Saline 500 MG in Premix Bag 1 BAG IV SCH ×2 (15:05→20:43)
[2017-03-02] MEDS: Menthol/Methyl Salicylate 85 GM Tube TOP SCH ×2 (16:56→20:53)
[2017-03-02] MEDS: guaiFENesin/Dextromethorphan 100-10 MG/5 ML Soln 10 ML Cup PO SCH ×2 (16:56→20:54)
[2017-03-02] MEDS ORDERED: Lactated Ringers 1,000 ML IV SCH (17:00)
[2017-03-02] MEDS: Albuterol 0.083% 2.5 MG/3 ML Neb Soln INH PRN (17:12)
[2017-03-02] MEDS ORDERED: LORazepam 2 MG/ML MDV IVPUSH PRN (17:41)
[2017-03-02] MEDS ORDERED: Metoprolol Tartrate 5 MG/5 ML SDV IVPUSH PRN (17:44)
[2017-03-02] MEDS: Acetaminophen 500 MG Tab PO SCH (17:57)
[2017-03-02] MEDS: Potassium Chloride 20 MEQ Tab.ER PO SCH (17:57)
[2017-03-02] MEDS: Furosemide 40 MG/4 ML VIAL IVPUSH SCH (17:58)
[2017-03-02] MEDS: Morphine 2 MG/ML Syringe IVPUSH PRN (18:46)
[2017-03-02] MEDS ORDERED: Mirtazapine 15 MG Tab PO SCH (20:00)
[2017-03-03] MEDS: Furosemide 40 MG/4 ML VIAL IVPUSH SCH (01:44)
[2017-03-03] MEDS: Albuterol/Ipratropium 3.0-0.5 MG/3 ML Neb Soln NEB SCH ×2 (01:44→08:21)
[2017-03-03] MEDS: metroNIDAZOLE/Normal Saline 500 MG in Premix Bag 1 BAG IV SCH (04:22)
[2017-03-03] MEDS: Sodium Chloride 0.9% 10 ML Syringe FLUSH PRN (05:52)
[2017-03-03] MEDS: Piperacillin/Tazobactam 3.375 GM in Sodium Chloride 0.9% 100 ML IV SCH (05:52)
[2017-03-03] MEDS ORDERED: Levothyroxine 25 MCG Tab PO SCH (07:30)
[2017-03-03] MEDS ORDERED: Budesonide 0.5 MG/2 ML Neb Susp NEB SCH (08:00)
[2017-03-03 08:11] LABS: CHLORIDE,CL 104 mmol/L (98-107); SODIUM,NA 142 mmol/L (136-145)
[2017-03-03] MEDS: Acetaminophen 500 MG Tab PO SCH (08:15)
[2017-03-03] MEDS: Potassium Chloride 20 MEQ Tab.ER PO SCH (08:16)
[2017-03-03] MEDS: guaiFENesin/Dextromethorphan 100-10 MG/5 ML Soln 10 ML Cup PO SCH (08:18)
[2017-03-03] MEDS: Menthol/Methyl Salicylate 85 GM Tube TOP SCH (08:21)
[2017-03-03] MEDS: Morphine 2 MG/ML Syringe IVPUSH PRN (09:43)
[2017-03-03] MEDS: Albuterol 0.083% 2.5 MG/3 ML Neb Soln INH PRN (09:49)
[2017-03-03] MEDS ORDERED: Potassium Chloride 20 MEQ Tab.ER PO ONE ×2 (10:00→12:00)
[2017-03-03] MEDS ORDERED: Menthol/Methyl Salicylate 85 GM Tube TOP PRN (10:41)
--- NOTE | 2017-03-03 11:24 | PCM.PN ---
- General Info Date of Service: 03/03/17 - Review of Systems General: Reports: Weakness HEENT: Reports: No Symptoms Pulmonary: Reports: Shortness of Breath, Cough Cardiovascular: Reports: No Symptoms Gastrointestinal: Reports: Decreased Appetite, Difficulty Swallowing Genitourinary: Reports: Retention Musculoskeletal: Reports: Back Pain Skin: Reports: Cyanosis, Pallor, Bruising Neurological: Reports: Confusion, Weakness Psychiatric: Reports: Confusion - Patient Data Vitals - Most Recent: Last Vital Signs Temp 97.8 F 03/03/17 07:52 Pulse 79 03/03/17 07:52 Resp 31 H 03/03/17 07:52 BP 120/76 03/03/17 07:52 Pulse Ox 95 03/03/17 07:52 Weight - Most Recent: 118 lb 8 oz I&O - Last 24 Hours: Intake & Output 03/02/17 03/03/17 03/03/17 22:59 06:59 14:59 Intake Total 200 1105 160 Output Total 550 1360 Balance -350 -255 160 Lab Results Last 24 Hours: Laboratory Results - last 24 hr 03/02/17 03/02/17 03/03/17 Range/Units 15:55 22:00 02:18 WBC (4.0-10.2) K/uL RBC (4.33-5.41) M/uL Hgb (13.1-16.8) g/dL Hct (39.0-49.0) % MCV (84.0-98.0) fL MCH (28.2-33.3) pg MCHC (31.7-36.0) g/dL RDW (11.2-14.1) % Plt Count (150-350) K/uL Neut % (Auto) (45.0-80.0) % Lymph % (Auto) (10.0-50.0) % [place] % (Auto) (2.0-14.0) % Eos % (Auto) (0.0-5.0) % Baso % (Auto) (0.0-2.0) % Neut # (Auto) (1.40-7.00) K/uL Lymph # (Auto) (0.50-3.50) K/uL [place] # (Auto) (0.00-1.00) K/uL Eos # (Auto) (0.00-0.50) K/uL Baso # (Auto) (0.00-0.20) K/uL D-Dimer, Quantitative (0-400) ng/mL Sodium (136-145) mmol/L Potassium (3.5-5.1) mmol/L Chloride (98-107) mmol/L Carbon Dioxide (21.0-32.0) mmol/L BUN (7-18) mg/dL Creatinine (0.51-1.17) mg/dL Est Cr Clr Drug Dosing Estimated GFR (MDRD) mL/min Glucose (74-106) mg/dL Hemoglobin A1c (4.3-5.7) % Lactic Acid (0.4-2.0) mmol/L Calcium (8.5-10.1) mg/dL Iron (50-175) ug/dL TIBC (250-450) ug/dL % Saturation Ferritin (8-388) ng/mL Total Bilirubin 1.3 H (0.2-1.0) mg/dL Direct Bilirubin 0.4 H (0.0-0.2) mg/dL Indirect Bilirubin 0.9 AST (15-37) U/L ALT (12-78) U/L Alkaline Phosphatase (46-116) IU/L Creatine Kinase 757 H 896 H (26-308) U/L Creatine Kinase Index 0.2 0.3 (0.0-2.5) % CK-MB (CK-2) 1.40 2.60 (0.00-3.60) ng/mL Troponin I 0.022 0.069 H* (0.000-0.056) ng/mL C-Reactive Protein (<=0.9) mg/dL NT-Pro-B Natriuret Pep (0-125) pg/mL Total Protein (6.4-8.2) g/dL Albumin (3.4-5.0) g/dL Triglycerides 89 (30-150) mg/dL Cholesterol 157 (100-200) mg/dL LDL Cholesterol, Calc 79 (0-100) mg/dL HDL Cholesterol 60 (40-60) mg/dL Vitamin B12 (193-986) pg/mL Folate (8.6-58.9) ng/mL Specimen Type Urinfol Urine Color Yellow Urine Appearance Clear Urine pH 5.0 (5.0-9.0) Ur Specific [place] <= 1.005 (1.005-1.030) Urine Protein Negative (NEGATIVE) mg/dL Urine Glucose (UA) Negative (NEGATIVE) mg/dL Urine Ketones Negative (NEGATIVE) mg/dL Urine Occult Blood Moderate H (NEGATIVE) Urine Nitrite Negative (NEGATIVE) Urine Bilirubin Negative (NEGATIVE) Urine Urobilinogen 0.2 (0.2-1.0) E.U./dL Ur Leukocyte Esterase Negative (NEGATIVE) Urine RBC 10-20 H /HPF Urine WBC 0-5 /HPF Ur Epithelial Cells Few /LPF Urine Bacteria Few (NONE TO FEW) /HPF Hyaline Casts Few H (NEGATIVE) /LPF 03/03/17 03/03/17 03/03/17 Range/Units 07:20 07:20 07:20 WBC 14.5 H (4.0-10.2) K/uL RBC 2.60 L (4.33-5.41) M/uL Hgb 9.0 L (13.1-16.8) g/dL Hct 26.9 L (39.0-49.0) % MCV 103.5 H (84.0-98.0) fL MCH 34.6 H (28.2-33.3) pg MCHC 33.5 (31.7-36.0) g/dL RDW 14.3 H (11.2-14.1) % Plt Count 209 (150-350) K/uL Neut % (Auto) 92.4 H (45.0-80.0) % Lymph % (Auto) 5.6 L (10.0-50.0) % [place] % (Auto) 1.7 L (2.0-14.0) % Eos % (Auto) 0.1 (0.0-5.0) % Baso % (Auto) 0.2 (0.0-2.0) % Neut # (Auto) 13.45 H (1.40-7.00) K/uL Lymph # (Auto) 0.81 (0.50-3.50) K/uL [place] # (Auto) 0.24 (0.00-1.00) K/uL Eos # (Auto) 0.01 (0.00-0.50) K/uL Baso # (Auto) 0.03 (0.00-0.20) K/uL D-Dimer, Quantitative 4740 H (0-400) ng/mL Sodium 142 (136-145) mmol/L Potassium 2.7 L* (3.5-5.1) mmol/L Chloride 104 (98-107) mmol/L Carbon Dioxide 23.8 (21.0-32.0) mmol/L BUN 32 H (7-18) mg/dL Creatinine 1.76 H (0.51-1.17) mg/dL Est Cr Clr Drug Dosing TNP Estimated GFR (MDRD) 37 mL/min Glucose 129 H (74-106) mg/dL Hemoglobin A1c (4.3-5.7) % Lactic Acid (0.4-2.0) mmol/L Calcium 8.8 (8.5-10.1) mg/dL Iron (50-175) ug/dL TIBC (250-450) ug/dL % Saturation Ferritin (8-388) ng/mL Total Bilirubin 1.3 H (0.2-1.0) mg/dL Direct Bilirubin (0.0-0.2) mg/dL Indirect Bilirubin AST 57 H (15-37) U/L ALT 24 (12-78) U/L Alkaline Phosphatase 59 (46-116) IU/L Creatine Kinase 869 H (26-308) U/L Creatine Kinase Index 0.3 (0.0-2.5) % CK-MB (CK-2) 3.00 (0.00-3.60) ng/mL Troponin I 0.112 H* (0.000-0.056) ng/mL C-Reactive Protein 31.4 H (<=0.9) mg/dL NT-Pro-B Natriuret Pep 5917 H (0-125) pg/mL Total Protein 7.2 (6.4-8.2) g/dL Albumin 3.1 L (3.4-5.0) g/dL Triglycerides (30-150) mg/dL Cholesterol (100-200) mg/dL LDL Cholesterol, Calc (0-100) mg/dL HDL Cholesterol (40-60) mg/dL Vitamin B12 1292 H (193-986) pg/mL Folate 23.3 (8.6-58.9) ng/mL Specimen Type Urine Color Urine Appearance Urine pH (5.0-9.0) Ur Specific [place] (1.005-1.030) Urine Protein (NEGATIVE) mg/dL Urine Glucose (UA) (NEGATIVE) mg/dL Urine Ketones (NEGATIVE) mg/dL Urine Occult Blood (NEGATIVE) Urine Nitrite (NEGATIVE) Urine Bilirubin (NEGATIVE) Urine Urobilinogen (0.2-1.0) E.U./dL Ur Leukocyte Esterase (NEGATIVE) Urine RBC /HPF Urine WBC /HPF Ur Epithelial Cells /LPF Urine Bacteria (NONE TO FEW) /HPF Hyaline Casts (NEGATIVE) /LPF 03/03/17 03/03/17 03/03/17 Range/Units 07:20 07:20 07:20 WBC (4.0-10.2) K/uL RBC (4.33-5.41) M/uL Hgb (13.1-16.8) g/dL Hct (39.0-49.0) % MCV (84.0-98.0) fL MCH (28.2-33.3) pg MCHC (31.7-36.0) g/dL RDW (11.2-14.1) % Plt Count (150-350) K/uL Neut % (Auto) (45.0-80.0) % Lymph % (Auto) (10.0-50.0) % [place] % (Auto) (2.0-14.0) % Eos % (Auto) (0.0-5.0) % Baso % (Auto) (0.0-2.0) % Neut # (Auto) (1.40-7.00) K/uL Lymph # (Auto) (0.50-3.50) K/uL [place] # (Auto) (0.00-1.00) K/uL Eos # (Auto) (0.00-0.50) K/uL Baso # (Auto) (0.00-0.20) K/uL D-Dimer, Quantitative (0-400) ng/mL Sodium (136-145) mmol/L Potassium (3.5-5.1) mmol/L Chloride (98-107) mmol/L Carbon Dioxide (21.0-32.0) mmol/L BUN (7-18) mg/dL Creatinine (0.51-1.17) mg/dL Est Cr Clr Drug Dosing Estimated GFR (MDRD) mL/min Glucose (74-106) mg/dL Hemoglobin A1c 6.0 H (4.3-5.7) % Lactic Acid 4.1 H (0.4-2.0) mmol/L Calcium (8.5-10.1) mg/dL Iron 17 L (50-175) ug/dL TIBC 192 L (250-450) ug/dL % Saturation 8.90786 Ferritin 2298 H (8-388) ng/mL Total Bilirubin (0.2-1.0) mg/dL Direct Bilirubin (0.0-0.2) mg/dL Indirect Bilirubin AST (15-37) U/L ALT (12-78) U/L Alkaline Phosphatase (46-116) IU/L Creatine Kinase (26-308) U/L Creatine Kinase Index (0.0-2.5) % CK-MB (CK-2) (0.00-3.60) ng/mL Troponin I (0.000-0.056) ng/mL C-Reactive Protein (<=0.9) mg/dL NT-Pro-B Natriuret Pep (0-125) pg/mL Total Protein (6.4-8.2) g/dL Albumin (3.4-5.0) g/dL Triglycerides (30-150) mg/dL Cholesterol (100-200) mg/dL LDL Cholesterol, Calc (0-100) mg/dL HDL Cholesterol (40-60) mg/dL Vitamin B12 (193-986) pg/mL Folate (8.6-58.9) ng/mL Specimen Type Urine Color Urine Appearance Urine pH (5.0-9.0) Ur Specific [place] (1.005-1.030) Urine Protein (NEGATIVE) mg/dL Urine Glucose (UA) (NEGATIVE) mg/dL Urine Ketones (NEGATIVE) mg/dL Urine Occult Blood (NEGATIVE) Urine Nitrite (NEGATIVE) Urine Bilirubin (NEGATIVE) Urine Urobilinogen (0.2-1.0) E.U./dL Ur Leukocyte Esterase (NEGATIVE) Urine RBC /HPF Urine WBC /HPF Ur Epithelial Cells /LPF Urine Bacteria (NONE TO FEW) /HPF Hyaline Casts (NEGATIVE) /LPF Med Orders - Current: Current Medications Discontinued Medications Acetaminophen (Tylenol) 650 mg PO Q4H PRN PRN Reason: Pain/Fever Acetaminophen (Tylenol Extra Strength) 1,000 mg PO TID [facility] Last Admin: 03/03/17 08:15 Dose: 1,000 mg Albuterol (Proventil Neb Soln) 2.5 mg INH Q2H PRN PRN Reason: SHORTNESS OF BREATH Last Admin: 03/03/17 09:49 Dose: 2.5 mg Albuterol/Ipratropium (Duoneb 3.0-0.5 Mg/3 Ml) 3 ml NEB ONETIME ONE Stop: 03/02/17 09:47 Last Admin: 03/02/17 10:30 Dose: 3 ml Albuterol/Ipratropium (Duoneb 3.0-0.5 Mg/3 Ml) 3 ml NEB Q4HRRT PRN PRN Reason: Dyspnea Last Admin: 03/03/17 00:30 Dose: 3 ml Albuterol/Ipratropium (Duoneb 3.0-0.5 Mg/3 Ml) 3 ml NEB Q6HRRT [facility] Last Admin: 03/03/17 08:21 Dose: 3 ml Albuterol/Ipratropium (Duoneb 3.0-0.5 Mg/3 Ml) 3 ml NEB BIDRT [facility] Budesonide (Pulmicort) 0.5 mg NEB ONETIME ONE Stop: 03/02/17 09:47 Last Admin: 03/02/17 10:40 Dose: 0.5 mg Budesonide (Pulmicort) 0.5 mg NEB BIDRT [facility] Last Admin: 03/03/17 08:21 Dose: 0.5 mg Enoxaparin Sodium (Lovenox) 60 mg SUBCUT Q24H [facility] Last Admin: 03/02/17 15:05 Dose: 60 mg Enoxaparin Sodium (Lovenox) 30 mg SUBCUT Q24H [facility] Famotidine (Pepcid) 40 mg IVPUSH ONETIME ONE Stop: 03/02/17 11:10 Last Admin: 03/02/17 11:47 Dose: 40 mg Furosemide (Lasix) 60 mg IVPUSH NOW ONE Stop: 03/02/17 11:10 Last Admin: 03/02/17 11:55 Dose: 60 mg Furosemide (Lasix) 40 mg IVPUSH Q8H [facility] Last Admin: 03/03/17 01:44 Dose: 40 mg Guaifenesin/Dextromethorphan (Robitussin Dm) 10 ml PO QID [facility] Last Admin: 03/03/17 08:18 Dose: 10 ml Piperacillin Sod/Tazobactam (Sod 3.375 gm/ Sodium Chloride) 100 mls @ 200 mls/ hr IV Q6H [facility] Last Admin: 03/03/17 05:52 Dose: 200 mls/hr Metronidazole 500 mg/ Premix 100 mls @ 100 mls/hr IV Q8H [facility] Last Admin: 03/03/17 04:22 Dose: 100 mls/hr Lactated Ringer's (Ringers, Lactated) 1,000 mls @ 60 mls/hr IV ASDIRECTED [facility] Last Admin: 03/02/17 19:26 Dose: 60 mls/hr Phenylephrine HCl 10 mg/ (Sodium Chloride) 101 mls @ 24.24 mls/hr IV TITRATE [facility]ICK; 40 MCG/MIN PRN Reason: Protocol Last Admin: 03/03/17 08:10 Dose: 90 mcg/min, 54.54 mls/hr Iopamidol (Isovue-370 (76%)) 100 ml IVPUSH ONETIME ONE Stop: 03/02/17 14:01 Last Admin: 03/02/17 15:18 Dose: 100 ml Levothyroxine Sodium (Levothyroxine) 25 mcg PO ACBREAKFAST [facility] Last Admin: 03/03/17 08:19 Dose: 25 mcg Lorazepam (Ativan) 1 mg IVPUSH Q4H PRN PRN Reason: Anxiety Methyl Salicylate (Icy Hot Cream) 1 gm TOP QID [facility] Last Admin: 03/03/17 08:21 Dose: Not Given Methyl Salicylate (Icy Hot Cream) 1 gm TOP QID PRN PRN Reason: Pain Metoprolol Tartrate (Lopressor) 2.5 mg IVPUSH ONETIME ONE Stop: 03/02/17 12:21 Last Admin: 03/02/17 12:24 Dose: 2.5 mg Metoprolol Tartrate (Lopressor) 2.5 mg IVPUSH Q4H PRN PRN Reason: Tachycardia Mirtazapine (Remeron) 7.5 mg PO BEDTIME [facility] Last Admin: 03/02/17 22:38 Dose: Not Given Morphine Sulfate (Morphine) 2 mg IVPUSH Q4H PRN PRN Reason: Dyspnea Last Admin: 03/03/17 09:43 Dose: 2 mg Pantoprazole Sodium (Protonix Iv) 40 mg IVPUSH Q12H [facility] Last Admin: 03/02/17 23:04 Dose: 40 mg Pantoprazole Sodium (Protonix Iv) 40 mg IVPUSH DAILY@1200 D[facility]ICK Potassium Chloride (Klor-Con M20) 20 meq PO TID [facility] Last Admin: 03/03/17 08:16 Dose: 20 meq Potassium Chloride (Klor-Con M20) 40 meq PO ONETIME ONE Stop: 03/03/17 10:01 Last Admin: 03/03/17 09:46 Dose: 40 meq Potassium Chloride (Klor-Con M20) 40 meq PO ONETIME ONE Stop: 03/03/17 12:01 Sodium Chloride (Saline Flush) 10 ml FLUSH ASDIRECTED PRN PRN Reason: Keep Vein Open Last Admin: 03/03/17 05:52 Dose: 10 ml Sodium Chloride (Saline Flush) 10 ml FLUSH Q12HR PRN PRN Reason: Keep Vein Open Last Admin: 03/03/17 04:26 Dose: 10 ml Sodium Chloride (Saline Flush) 10 ml FLUSH Q12HR [facility] Temazepam (Restoril) 15 mg PO BEDTIME PRN PRN Reason: Insomnia - Exam Quality Assessment: Supplemental Oxygen, Urine Catheter, DVT Prophylaxis General: Alert, Severe Distress HEENT: Pupils Reactive Neck: Trachea Midline, No JVD Lungs: Decreased Breath Sounds, Rhonchi Cardiovascular: Irregular Rhythm GI/Abdominal Exam: Soft, Non-Tender, No Distention (Male) Exam: Other (drummond catheter) Back Exam: Decreased Range of Motion, Vertebral Tenderness, Other (kyphosis) Extremities: No Pedal Edema, Slow Capillary Refill Skin: Dry, Intact, Cool Neurological: No New Focal Deficit Psy/Mental Status: Alert, Anxious - Problem List & Annotations (1) CHF (congestive heart failure) SNOMED Code(s): 52931590 Code(s): I50.9 - HEART FAILURE, UNSPECIFIED Status: Acute Priority: High Current Visit: Yes Onset Date: 03/02/17 Qualifiers: Congestive heart failure type: unspecified congestive heart failure type Congestive heart failure chronicity: acute Qualified Code(s): I50.9 - Heart failure, unspecified Annotation/Comment:: Moderate CHF by clinical exam, blood work, and x-ray with high-dose IV Lasix initiated in the emergency room. No chest pain or anginal symptoms with chest pain protocol not initiated in the emergency room. Admit to inpatient/acute care with continuation of aggressive IV Lasix therapy with caution secondary to his renal insufficiency. [facility] assumes care in the a.m. Note that patient is comfort care only, which was confirmed both by his and his daughter. No transfer to [place] or other aggressive treatment measures. Note echocardiogram, etc. secondary to his comfort care status (2) D-dimer, elevated SNOMED Code(s): 119477389 Code(s): R79.89 - OTHER SPECIFIED ABNORMAL FINDINGS OF BLOOD CHEMISTRY Status: Acute Priority: High Current Visit: Yes Onset Date: 03/02/17 Annotation/Comment:: No direct clinical evidence of DVT or PE. Ultrasound is not available today. CTA of the chest to be conducted with caution secondary to his renal insufficiency. Lovenox will be held for now secondary to patient's significant anemia, although negative Hemoccult as above. (3) Elevated CK SNOMED Code(s): 566015223 Code(s): R74.8 - ABNORMAL LEVELS OF OTHER SERUM ENZYMES Status: Acute Priority: High Current Visit: Yes Onset Date: 03/02/17 Annotation/Comment: : Elevated CK likely secondary to recent fall with no direct evidence of rhabdomyolysis. Secondary to patient's significant CHF only low-dose IV fluids for now. Continue to observe his renal status, etc. closely. Note CK MB is normal with only mildly elevated troponin I secondary to CHF and renal disease (4) Hyperbilirubinemia SNOMED Code(s): 08498818 Code(s): E80.6 - OTHER DISORDERS OF BILIRUBIN METABOLISM Status: Acute Priority: Medium Current Visit: Yes Onset Date: 03/02/17 Annotation/ Comment:: Borderline hyperbilirubinemia. Direct and indirect bilirubin with next set of blood work (5) Hypoalbuminemia SNOMED Code(s): 140928719 Code(s): E88.09 - H DISORDERS OF PLASMA-PROTEIN METABOLISM, NEC Status: Acute Priority: High Current Visit: Yes Onset Date: 03/02/17 Annotation/ Comment:: High-protein Glucerna supplements with snacks. Note history of unintentional weight loss during the last couple of years with borderline anorexia. Dietary consultation should be considered (6) Pneumonia SNOMED Code(s): 255904281 Code(s): J18.9 - PNEUMONIA, UNSPECIFIED ORGANISM Status: Acute Priority: High Current Visit: Yes Onset Date: ~02/28/17 Qualifiers: Pneumonia type: due to unspecified organism Laterality: bilateral Lung location: unspecified part of lung Qualified Code(s): J18.9 - Pneumonia, unspecified organism Annotation/Comment:: Progressive cough during the last couple of days with patient febrile and evidence of clinical pneumonia including WBCs elevation. Blood cultures 2 were collected. Sputum specimen was also collected in the emergency room. Triple nebulizer treatment given in the emergency room with initiation of IV Zosyn. Secondary to history of questionable borderline dysphagia additional IV Flagyl will be initiated, although no direct history of aspiration. Continue nebulizer therapy, etc. Known history of COPD with no medications at home to this point. Continue home health through public health at discharge (7) Renal insufficiency SNOMED Code(s): 722614933 Code(s): N28.9 - DISORDER OF KIDNEY AND URETER, UNSPECIFIED Status: Acute Priority: Medium Current Visit: Yes Onset Date: 03/02/17 Annotation/ Comment:: Newly diagnosed mild renal insufficiency. Observe closely secondary to IV Lasix therapy (8) Anemia SNOMED Code(s): 010760851 Code(s): D64.9 - ANEMIA, UNSPECIFIED Status: Chronic Priority: High Current Visit: Yes Qualifiers: Anemia type: unspecified type Qualified Code(s): D64.9 - Anemia, unspecified Annotation/Comment:: Baseline hemoglobin unknown. Significant anemia today. Further workup during this hospitalization with blood work tomorrow. Note Hemoccult negative today with no evidence of acute GI bleed (9) Comfort measures only status SNOMED Code(s): 35739545128601 Code(s): Z51.5 - ENCOUNTER FOR PALLIATIVE CARE Status: Chronic Priority: Medium Current Visit: Yes Annotation/Comment:: As above (10) Hyperlipidemia SNOMED Code(s): 87469977 Code(s): E78.5 - HYPERLIPIDEMIA, UNSPECIFIED Status: Chronic Priority: Medium Current Visit: Yes Qualifiers: Hyperlipidemia type: unspecified Qualified Code(s): E78.5 - Hyperlipidemia , unspecified Annotation/Comment:: No therapy to this point. 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 Attempt to discontinue this medication during this phase of hospitalization with regularly scheduled Tylenol for now additional topical therapy (13) Osteoarthritis SNOMED Code(s): 330684770 Code(s): M19.90 - UNSPECIFIED OSTEOARTHRITIS, UNSPECIFIED SITE Status: Chronic Priority: High Current Visit: Yes Qualifiers: Osteoarthritis location: multiple joints Osteoarthritis type: primary Qualified Code(s): M15.0 - Primary generalized (osteo)arthritis Annotation/Comment:: Low back pain with recent T11 vertebral body compression fracture as above. Additional nonspecific left hip pain with no evidence of acute fractures by x-rays as above. Note moderate coxarthrosis bilaterally. Symptomatic relief for now. Note significant osteoporosis with consideration of initiation of calcium, vitamin D, etc. by his regular providers. His osteoarthritis has otherwise been stable (14) Peptic reflux disease SNOMED Code(s): 52927759 Code(s): K21.9 - GASTRO-ESOPHAGEAL REFLUX DISEASE WITHOUT ESOPHAGITIS Status: Chronic Priority: Medium Current Visit: Yes Annotation/Comment:: Stable by history. High-dose IV Pepcid and IV Protonix therapy initiated in the emergency room as GI prophylaxis. Note significant anemia as above. No current abdominal complaints - Problem List Review Problem List Initiated/Reviewed/Updated: Yes - My Orders Last 24 Hours: My Active Orders 03/03/17 10:40 Discontinue Telemetry Monitoring [Cardiac Monitoring Discontinue] [RC] Click to Edit 03/03/17 11:08 Peripheral IV Discontinue [OM.PC] Routine 03/03/17 11:09 DC Drummond Catheter [Urinary Catheter Removal] [RC] Per Unit Routine 03/03/17 14:00 AMMONIA VENOUS [CHEM] Routine BASIC METABOLIC PANEL,BMP [CHEM] Routine BLOOD GAS VENOUS [BG] Routine CBC W/O DIFF,HEMOGRAM [HEME] Routine LACTIC ACID [CHEM] Routine 03/04/17 05:11 CBC WITH AUTO DIFF [HEME] DAILY CMP [COMPREHENSIVE METABOLIC PN,CMP] [CHEM] DAILY CRP [C-REACTIVE PROTEIN] [CHEM] DAILY 03/05/17 05:11 CBC WITH AUTO DIFF [HEME] DAILY CMP [COMPREHENSIVE METABOLIC PN,CMP] [CHEM] DAILY CRP [C-REACTIVE PROTEIN] [CHEM] DAILY 03/06/17 05:11 CBC WITH AUTO DIFF [HEME] DAILY CMP [COMPREHENSIVE METABOLIC PN,CMP] [CHEM] DAILY CRP [C-REACTIVE PROTEIN] [CHEM] DAILY - Plan Plan:: 03/03/17 Tunde Cruz MD Called by nurse. Clinical condition change with deterioration. He is still talking and answering my questions but very labored breathing. and daughter at bedside. We discussed comfort care. There was noted a change in the telemetry (change in heart rhythm), he became unresponsive, he was not struggling but calm with quiet respirations. Then blood pressure was hypotensive , he had been hypoxic, respirations ceased and heart beat ceased. Pupils fixed and dilated. Pronounced .
--- NOTE | 2017-03-03 11:39 | PCM.DCSUM1 ---
Discharge Summary - Discharge Data Discharge Date: 03/03/17 Discharge Disposition: 20 Preliminary Cause of *Q: Respiratory Failure Condition: - Discharge Diagnosis/Problem(s) (1) CHF (congestive heart failure) SNOMED Code(s): 97872586 ICD Code: I50.9 - HEART FAILURE, UNSPECIFIED Status: Acute Priority: High Current Visit: Yes Onset Date: 03/02/17 Problem Details: Moderate CHF by clinical exam, blood work, and x-ray with high-dose IV Lasix initiated in the emergency room. No chest pain or anginal symptoms with chest pain protocol not initiated in the emergency room. Admit to inpatient/acute care with continuation of aggressive IV Lasix therapy with caution secondary to his renal insufficiency. [facility] assumes care in the a.m. Note that patient is comfort care only, which was confirmed both by his and his daughter. No transfer to [place] or other aggressive treatment measures. Note echocardiogram, etc. secondary to his comfort care status Qualifiers: Congestive heart failure type: unspecified congestive heart failure type Congestive heart failure chronicity: acute Qualified Code(s): I50.9 - Heart failure, unspecified (2) D-dimer, elevated SNOMED Code(s): 894739752 ICD Code: R79.89 - OTHER SPECIFIED ABNORMAL FINDINGS OF BLOOD CHEMISTRY Status: Acute Priority: High Current Visit: Yes Onset Date: 03/02/17 Problem Details: No direct clinical evidence of DVT or PE. Ultrasound is not available today. CTA of the chest to be conducted with caution secondary to his renal insufficiency. Lovenox will be held for now secondary to patient's significant anemia, although negative Hemoccult as above. (3) Elevated CK SNOMED Code(s): 193622777 ICD Code: R74.8 - ABNORMAL LEVELS OF OTHER SERUM ENZYMES Status: Acute Priority: High Current Visit: Yes Onset Date: 03/02/17 Problem Details: Elevated CK likely secondary to recent fall with no direct evidence of rhabdomyolysis. Secondary to patient's significant CHF only low-dose IV fluids for now. Continue to observe his renal status, etc. closely. Note CK MB is normal with only mildly elevated troponin I secondary to CHF and renal disease (4) Hyperbilirubinemia SNOMED Code(s): 07896409 ICD Code: E80.6 - OTHER DISORDERS OF BILIRUBIN METABOLISM Status: Acute Priority: Medium Current Visit: Yes Onset Date: 03/02/17 Problem Details: Borderline hyperbilirubinemia. Direct and indirect bilirubin with next set of blood work (5) Hypoalbuminemia SNOMED Code(s): 676095629 ICD Code: E88.09 - OTH DISORDERS OF PLASMA-PROTEIN METABOLISM, NEC Status: Acute Priority: High Current Visit: Yes Onset Date: 03/02/17 Problem Details: High-protein Glucerna supplements with snacks. Note history of unintentional weight loss during the last couple of years with borderline anorexia. Dietary consultation should be considered (6) Pneumonia SNOMED Code(s): 306365666 ICD Code: J18.9 - PNEUMONIA, UNSPECIFIED ORGANISM Status: Acute Priority : High Current Visit: Yes Onset Date: ~02/28/17 Problem Details: Progressive cough during the last couple of days with patient febrile and evidence of clinical pneumonia including WBCs elevation. Blood cultures 2 were collected. Sputum specimen was also collected in the emergency room. Triple nebulizer treatment given in the emergency room with initiation of IV Zosyn. Secondary to history of questionable borderline dysphagia additional IV Flagyl will be initiated, although no direct history of aspiration. Continue nebulizer therapy, etc. Known history of COPD with no medications at home to this point. Continue home health through public health at discharge Qualifiers: Pneumonia type: due to unspecified organism Laterality: bilateral Lung location: unspecified part of lung Qualified Code(s): J18.9 - Pneumonia, unspecified organism (7) Renal insufficiency SNOMED Code(s): 085685034 ICD Code: N28.9 - DISORDER OF KIDNEY AND URETER, UNSPECIFIED Status: Acute Priority: Medium Current Visit: Yes Onset Date: 03/02/17 Problem Details: Newly diagnosed mild renal insufficiency. Observe closely secondary to IV Lasix therapy (8) Anemia SNOMED Code(s): 612026769 ICD Code: D64.9 - ANEMIA, UNSPECIFIED Status: Chronic Priority: High Current Visit: Yes Problem Details: Baseline hemoglobin unknown. Significant anemia today. Further workup during this hospitalization with blood work tomorrow. Note Hemoccult negative today with no evidence of acute GI bleed Qualifiers: Anemia type: unspecified type Qualified Code(s): D64.9 - Anemia, unspecified (9) Comfort measures only status SNOMED Code(s): 71082075406123 ICD Code: Z51.5 - ENCOUNTER FOR PALLIATIVE CARE Status: Chronic Priority : Medium Current Visit: Yes Problem Details: As above (10) Hyperlipidemia SNOMED Code(s): 23646807 ICD Code: E78.5 - HYPERLIPIDEMIA, UNSPECIFIED Status: Chronic Priority: Medium Current Visit: Yes Problem Details: No therapy to this point. 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 Attempt to discontinue this medication during this phase of hospitalization with regularly scheduled Tylenol for now additional topical therapy (13) Osteoarthritis SNOMED Code(s): 178955973 ICD Code: M19.90 - UNSPECIFIED OSTEOARTHRITIS, UNSPECIFIED SITE Status: Chronic Priority: High Current Visit: Yes Problem Details: Low back pain with recent T11 vertebral body compression fracture as above. Additional nonspecific left hip pain with no evidence of acute fractures by x-rays as above. Note moderate coxarthrosis bilaterally. Symptomatic relief for now. Note significant osteoporosis with consideration of initiation of calcium, vitamin D , etc. by his regular providers. His osteoarthritis has otherwise been stable Qualifiers: Osteoarthritis location: multiple joints Osteoarthritis type: primary Qualified Code(s): M15.0 - Primary generalized (osteo)arthritis (14) Peptic reflux disease SNOMED Code(s): 62479041 ICD Code: K21.9 - GASTRO-ESOPHAGEAL REFLUX DISEASE WITHOUT ESOPHAGITIS Status: Chronic Priority: Medium Current Visit: Yes Problem Details: Stable by history. High-dose IV Pepcid and IV Protonix therapy initiated in the emergency room as GI prophylaxis. Note significant anemia as above. No current abdominal complaints - Discharge Plan Home Medications: Home Meds Levothyroxine Sodium [Synthroid] 25 mcg PO ACBREAKFAST 03/02/17 [History] Mirtazapine 0.5 tab PO BEDTIME 03/02/17 [History] guaiFENesin 5 ml PO Q6H PRN 03/02/17 [History] traMADol [Ultram] 1 tab PO BID PRN 03/02/17 [History] Patient Handouts: Heart Failure, Community-Acquired Pneumonia, Adult Forms: ED Department Discharge Referrals: Zuleika Byrnes MD [Primary Care Provider] - - Discharge Summary/Plan Comment DC Time >30 min.: Yes Discharge Summary/Plan Comment: 03/03/17 Tunde Cruz MD and daughter at bedside. He had developed pneumonia and CHF. He was DNR/DNI /Comfort. He went unresponsive, hypotensive, hypoxia, anirudh rhythm to asystole and respirations ceased, pupils fixed and dilated. Pronounced . Support given to family. - Patient Data Vitals - Most Recent: Last Vital Signs Temp 97.8 F 03/03/17 07:52 Pulse 79 03/03/17 07:52 Resp 31 H 03/03/17 07:52 BP 120/76 03/03/17 07:52 Pulse Ox 95 03/03/17 07:52 Weight - Most Recent: 118 lb 8 oz I&O - Last 24 hours: Intake & Output 03/02/17 03/03/17 03/03/17 22:59 06:59 14:59 Intake Total 200 1105 160 Output Total 550 1360 Balance -350 -255 160 Lab Results - Last 24 hrs: Laboratory Results - last 24 hr 03/02/17 03/02/17 03/03/17 Range/Units 15:55 22:00 02:18 WBC (4.0-10.2) K/uL RBC (4.33-5.41) M/uL Hgb (13.1-16.8) g/dL Hct (39.0-49.0) % MCV (84.0-98.0) fL MCH (28.2-33.3) pg MCHC (31.7-36.0) g/dL RDW (11.2-14.1) % Plt Count (150-350) K/uL Neut % (Auto) (45.0-80.0) % Lymph % (Auto) (10.0-50.0) % [place] % (Auto) (2.0-14.0) % Eos % (Auto) (0.0-5.0) % Baso % (Auto) (0.0-2.0) % Neut # (Auto) (1.40-7.00) K/uL Lymph # (Auto) (0.50-3.50) K/uL [place] # (Auto) (0.00-1.00) K/uL Eos # (Auto) (0.00-0.50) K/uL Baso # (Auto) (0.00-0.20) K/uL D-Dimer, Quantitative (0-400) ng/mL Sodium (136-145) mmol/L Potassium (3.5-5.1) mmol/L Chloride (98-107) mmol/L Carbon Dioxide (21.0-32.0) mmol/L BUN (7-18) mg/dL Creatinine (0.51-1.17) mg/dL Est Cr Clr Drug Dosing Estimated GFR (MDRD) mL/min Glucose (74-106) mg/dL Hemoglobin A1c (4.3-5.7) % Lactic Acid (0.4-2.0) mmol/L Calcium (8.5-10.1) mg/dL Iron (50-175) ug/dL TIBC (250-450) ug/dL % Saturation Ferritin (8-388) ng/mL Total Bilirubin 1.3 H (0.2-1.0) mg/dL Direct Bilirubin 0.4 H (0.0-0.2) mg/dL Indirect Bilirubin 0.9 AST (15-37) U/L ALT (12-78) U/L Alkaline Phosphatase (46-116) IU/L Creatine Kinase 757 H 896 H (26-308) U/L Creatine Kinase Index 0.2 0.3 (0.0-2.5) % CK-MB (CK-2) 1.40 2.60 (0.00-3.60) ng/mL Troponin I 0.022 0.069 H* (0.000-0.056) ng/mL C-Reactive Protein (<=0.9) mg/dL NT-Pro-B Natriuret Pep (0-125) pg/mL Total Protein (6.4-8.2) g/dL Albumin (3.4-5.0) g/dL Triglycerides 89 (30-150) mg/dL Cholesterol 157 (100-200) mg/dL LDL Cholesterol, Calc 79 (0-100) mg/dL HDL Cholesterol 60 (40-60) mg/dL Vitamin B12 (193-986) pg/mL Folate (8.6-58.9) ng/mL Specimen Type Urinfol Urine Color Yellow Urine Appearance Clear Urine pH 5.0 (5.0-9.0) Ur Specific [place] <= 1.005 (1.005-1.030) Urine Protein Negative (NEGATIVE) mg/dL Urine Glucose (UA) Negative (NEGATIVE) mg/dL Urine Ketones Negative (NEGATIVE) mg/dL Urine Occult Blood Moderate H (NEGATIVE) Urine Nitrite Negative (NEGATIVE) Urine Bilirubin Negative (NEGATIVE) Urine Urobilinogen 0.2 (0.2-1.0) E.U./dL Ur Leukocyte Esterase Negative (NEGATIVE) Urine RBC 10-20 H /HPF Urine WBC 0-5 /HPF Ur Epithelial Cells Few /LPF Urine Bacteria Few (NONE TO FEW) /HPF Hyaline Casts Few H (NEGATIVE) /LPF 03/03/17 03/03/17 03/03/17 Range/Units 07:20 07:20 07:20 WBC 14.5 H (4.0-10.2) K/uL RBC 2.60 L (4.33-5.41) M/uL Hgb 9.0 L (13.1-16.8) g/dL Hct 26.9 L (39.0-49.0) % MCV 103.5 H (84.0-98.0) fL MCH 34.6 H (28.2-33.3) pg MCHC 33.5 (31.7-36.0) g/dL RDW 14.3 H (11.2-14.1) % Plt Count 209 (150-350) K/uL Neut % (Auto) 92.4 H (45.0-80.0) % Lymph % (Auto) 5.6 L (10.0-50.0) % [place] % (Auto) 1.7 L (2.0-14.0) % Eos % (Auto) 0.1 (0.0-5.0) % Baso % (Auto) 0.2 (0.0-2.0) % Neut # (Auto) 13.45 H (1.40-7.00) K/uL Lymph # (Auto) 0.81 (0.50-3.50) K/uL [place] # (Auto) 0.24 (0.00-1.00) K/uL Eos # (Auto) 0.01 (0.00-0.50) K/uL Baso # (Auto) 0.03 (0.00-0.20) K/uL D-Dimer, Quantitative 4740 H (0-400) ng/mL Sodium 142 (136-145) mmol/L Potassium 2.7 L* (3.5-5.1) mmol/L Chloride 104 (98-107) mmol/L Carbon Dioxide 23.8 (21.0-32.0) mmol/L BUN 32 H (7-18) mg/dL Creatinine 1.76 H (0.51-1.17) mg/dL Est Cr Clr Drug Dosing TNP Estimated GFR (MDRD) 37 mL/min Glucose 129 H (74-106) mg/dL Hemoglobin A1c (4.3-5.7) % Lactic Acid (0.4-2.0) mmol/L Calcium 8.8 (8.5-10.1) mg/dL Iron (50-175) ug/dL TIBC (250-450) ug/dL % Saturation Ferritin (8-388) ng/mL Total Bilirubin 1.3 H (0.2-1.0) mg/dL Direct Bilirubin (0.0-0.2) mg/dL Indirect Bilirubin AST 57 H (15-37) U/L ALT 24 (12-78) U/L Alkaline Phosphatase 59 (46-116) IU/L Creatine Kinase 869 H (26-308) U/L Creatine Kinase Index 0.3 (0.0-2.5) % CK-MB (CK-2) 3.00 (0.00-3.60) ng/mL Troponin I 0.112 H* (0.000-0.056) ng/mL C-Reactive Protein 31.4 H (<=0.9) mg/dL NT-Pro-B Natriuret Pep 5917 H (0-125) pg/mL Total Protein 7.2 (6.4-8.2) g/dL Albumin 3.1 L (3.4-5.0) g/dL Triglycerides (30-150) mg/dL Cholesterol (100-200) mg/dL LDL Cholesterol, Calc (0-100) mg/dL HDL Cholesterol (40-60) mg/dL Vitamin B12 1292 H (193-986) pg/mL Folate 23.3 (8.6-58.9) ng/mL Specimen Type Urine Color Urine Appearance Urine pH (5.0-9.0) Ur Specific [place] (1.005-1.030) Urine Protein (NEGATIVE) mg/dL Urine Glucose (UA) (NEGATIVE) mg/dL Urine Ketones (NEGATIVE) mg/dL Urine Occult Blood (NEGATIVE) Urine Nitrite (NEGATIVE) Urine Bilirubin (NEGATIVE) Urine Urobilinogen (0.2-1.0) E.U./dL Ur Leukocyte Esterase (NEGATIVE) Urine RBC /HPF Urine WBC /HPF Ur Epithelial Cells /LPF Urine Bacteria (NONE TO FEW) /HPF Hyaline Casts (NEGATIVE) /LPF 03/03/17 03/03/17 03/03/17 Range/Units 07:20 07:20 07:20 WBC (4.0-10.2) K/uL RBC (4.33-5.41) M/uL Hgb (13.1-16.8) g/dL Hct (39.0-49.0) % MCV (84.0-98.0) fL MCH (28.2-33.3) pg MCHC (31.7-36.0) g/dL RDW (11.2-14.1) % Plt Count (150-350) K/uL Neut % (Auto) (45.0-80.0) % Lymph % (Auto) (10.0-50.0) % [place] % (Auto) (2.0-14.0) % Eos % (Auto) (0.0-5.0) % Baso % (Auto) (0.0-2.0) % Neut # (Auto) (1.40-7.00) K/uL Lymph # (Auto) (0.50-3.50) K/uL [place] # (Auto) (0.00-1.00) K/uL Eos # (Auto) (0.00-0.50) K/uL Baso # (Auto) (0.00-0.20) K/uL D-Dimer, Quantitative (0-400) ng/mL Sodium (136-145) mmol/L Potassium (3.5-5.1) mmol/L Chloride (98-107) mmol/L Carbon Dioxide (21.0-32.0) mmol/L BUN (7-18) mg/dL Creatinine (0.51-1.17) mg/dL Est Cr Clr Drug Dosing Estimated GFR (MDRD) mL/min Glucose (74-106) mg/dL Hemoglobin A1c 6.0 H (4.3-5.7) % Lactic Acid 4.1 H (0.4-2.0) mmol/L Calcium (8.5-10.1) mg/dL Iron 17 L (50-175) ug/dL TIBC 192 L (250-450) ug/dL % Saturation [id number] Ferritin 2298 H (8-388) ng/mL Total Bilirubin (0.2-1.0) mg/dL Direct Bilirubin (0.0-0.2) mg/dL Indirect Bilirubin AST (15-37) U/L ALT (12-78) U/L Alkaline Phosphatase (46-116) IU/L Creatine Kinase (26-308) U/L Creatine Kinase Index (0.0-2.5) % CK-MB (CK-2) (0.00-3.60) ng/mL Troponin I (0.000-0.056) ng/mL C-Reactive Protein (<=0.9) mg/dL NT-Pro-B Natriuret Pep (0-125) pg/mL Total Protein (6.4-8.2) g/dL Albumin (3.4-5.0) g/dL Triglycerides (30-150) mg/dL Cholesterol (100-200) mg/dL LDL Cholesterol, Calc (0-100) mg/dL HDL Cholesterol (40-60) mg/dL Vitamin B12 (193-986) pg/mL Folate (8.6-58.9) ng/mL Specimen Type Urine Color Urine Appearance Urine pH (5.0-9.0) Ur Specific [place] (1.005-1.030) Urine Protein (NEGATIVE) mg/dL Urine Glucose (UA) (NEGATIVE) mg/dL Urine Ketones (NEGATIVE) mg/dL Urine Occult Blood (NEGATIVE) Urine Nitrite (NEGATIVE) Urine Bilirubin (NEGATIVE) Urine Urobilinogen (0.2-1.0) E.U./dL Ur Leukocyte Esterase (NEGATIVE) Urine RBC /HPF Urine WBC /HPF Ur Epithelial Cells /LPF Urine Bacteria (NONE TO FEW) /HPF Hyaline Casts (NEGATIVE) /LPF Med Orders - Current: Current Medications Discontinued Medications Acetaminophen (Tylenol) 650 mg PO Q4H PRN PRN Reason: Pain/Fever Acetaminophen (Tylenol Extra Strength) 1,000 mg PO TID [facility] Last Admin: 03/03/17 08:15 Dose: 1,000 mg Albuterol (Proventil Neb Soln) 2.5 mg INH Q2H PRN PRN Reason: SHORTNESS OF BREATH Last Admin: 03/03/17 09:49 Dose: 2.5 mg Albuterol/Ipratropium (Duoneb 3.0-0.5 Mg/3 Ml) 3 ml NEB ONETIME ONE Stop: 03/02/17 09:47 Last Admin: 03/02/17 10:30 Dose: 3 ml Albuterol/Ipratropium (Duoneb 3.0-0.5 Mg/3 Ml) 3 ml NEB Q4HRRT PRN PRN Reason: Dyspnea Last Admin: 03/03/17 00:30 Dose: 3 ml Albuterol/Ipratropium (Duoneb 3.0-0.5 Mg/3 Ml) 3 ml NEB Q6HRRT DERRICK Last Admin: 03/03/17 08:21 Dose: 3 ml Albuterol/Ipratropium (Duoneb 3.0-0.5 Mg/3 Ml) 3 ml NEB BIDRT [facility] Budesonide (Pulmicort) 0.5 mg NEB ONETIME ONE Stop: 03/02/17 09:47 Last Admin: 03/02/17 10:40 Dose: 0.5 mg Budesonide (Pulmicort) 0.5 mg NEB BIDRT [facility] Last Admin: 03/03/17 08:21 Dose: 0.5 mg Enoxaparin Sodium (Lovenox) 60 mg SUBCUT Q24H [facility] Last Admin: 03/02/17 15:05 Dose: 60 mg Enoxaparin Sodium (Lovenox) 30 mg SUBCUT Q24H [facility] Famotidine (Pepcid) 40 mg IVPUSH ONETIME ONE Stop: 03/02/17 11:10 Last Admin: 03/02/17 11:47 Dose: 40 mg Furosemide (Lasix) 60 mg IVPUSH NOW ONE Stop: 03/02/17 11:10 Last Admin: 03/02/17 11:55 Dose: 60 mg Furosemide (Lasix) 40 mg IVPUSH Q8H [facility] Last Admin: 03/03/17 01:44 Dose: 40 mg Guaifenesin/Dextromethorphan (Robitussin Dm) 10 ml PO QID [facility] Last Admin: 03/03/17 08:18 Dose: 10 ml Piperacillin Sod/Tazobactam (Sod 3.375 gm/ Sodium Chloride) 100 mls @ 200 mls/ hr IV Q6H [facility] Last Admin: 03/03/17 05:52 Dose: 200 mls/hr Metronidazole 500 mg/ Premix 100 mls @ 100 mls/hr IV Q8H [facility] Last Admin: 03/03/17 04:22 Dose: 100 mls/hr Lactated Ringer's (Ringers, Lactated) 1,000 mls @ 60 mls/hr IV ASDIRECTED [facility] Last Admin: 03/02/17 19:26 Dose: 60 mls/hr Phenylephrine HCl 10 mg/ (Sodium Chloride) 101 mls @ 24.24 mls/hr IV TITRATE DERRICK; 40 MCG/MIN PRN Reason: Protocol Last Admin: 03/03/17 08:10 Dose: 90 mcg/min, 54.54 mls/hr Iopamidol (Isovue-370 (76%)) 100 ml IVPUSH ONETIME ONE Stop: 03/02/17 14:01 Last Admin: 03/02/17 15:18 Dose: 100 ml Levothyroxine Sodium (Levothyroxine) 25 mcg PO ACBREAKFAST [facility] Last Admin: 03/03/17 08:19 Dose: 25 mcg Lorazepam (Ativan) 1 mg IVPUSH Q4H PRN PRN Reason: Anxiety Methyl Salicylate (Icy Hot Cream) 1 gm TOP QID DERRICK Last Admin: 03/03/17 08:21 Dose: Not Given Methyl Salicylate (Icy Hot Cream) 1 gm TOP QID PRN PRN Reason: Pain Metoprolol Tartrate (Lopressor) 2.5 mg IVPUSH ONETIME ONE Stop: 03/02/17 12:21 Last Admin: 03/02/17 12:24 Dose: 2.5 mg Metoprolol Tartrate (Lopressor) 2.5 mg IVPUSH Q4H PRN PRN Reason: Tachycardia Mirtazapine (Remeron) 7.5 mg PO BEDTIME [facility] Last Admin: 03/02/17 22:38 Dose: Not Given Morphine Sulfate (Morphine) 2 mg IVPUSH Q4H PRN PRN Reason: Dyspnea Last Admin: 03/03/17 09:43 Dose: 2 mg Pantoprazole Sodium (Protonix Iv) 40 mg IVPUSH Q12H [facility] Last Admin: 03/02/17 23:04 Dose: 40 mg Pantoprazole Sodium (Protonix Iv) 40 mg IVPUSH DAILY@1200 [facility] Potassium Chloride (Klor-Con M20) 20 meq PO TID [facility] Last Admin: 03/03/17 08:16 Dose: 20 meq Potassium Chloride (Klor-Con M20) 40 meq PO ONETIME ONE Stop: 03/03/17 10:01 Last Admin: 03/03/17 09:46 Dose: 40 meq Potassium Chloride (Klor-Con M20) 40 meq PO ONETIME ONE Stop: 03/03/17 12:01 Sodium Chloride (Saline Flush) 10 ml FLUSH ASDIRECTED PRN PRN Reason: Keep Vein Open Last Admin: 03/03/17 05:52 Dose: 10 ml Sodium Chloride (Saline Flush) 10 ml FLUSH Q12HR PRN PRN Reason: Keep Vein Open Last Admin: 03/03/17 04:26 Dose: 10 ml Sodium Chloride (Saline Flush) 10 ml FLUSH Q12HR [facility] Temazepam (Restoril) 15 mg PO BEDTIME PRN PRN Reason: Insomnia *Q Meaningful Use (DIS) - VTE *Q VTE Criteria *Q: - Stroke *Q Stroke Criteria *Q: - AMI *Q AMI Criteria *Q:
[2017-03-03] MEDS ORDERED: Pantoprazole 40 MG Vial IVPUSH SCH (12:00)
[2017-03-03] MEDS ORDERED: Enoxaparin 30 MG/0.3 ML Syringe SUBCUT SCH (14:00)
[2017-03-03 14:59] VITALS: BP 95/44
[2017-03-03] MEDS ORDERED: Albuterol/Ipratropium 3.0-0.5 MG/3 ML Neb Soln NEB SCH (20:00)
[2017-03-03] MEDS ORDERED: Sodium Chloride 0.9% 10 ML Syringe FLUSH SCH (20:00)
== END 2017-03-03 12:55 | disposition expired | DRG 195 ==
LOC: LL.ED 09:30 → LL.MS 11:46 → UNDOADMIN 11:46 → LL.MS 13:38 → UNDODISIN 03-03 12:55
PROVIDERS: ADMIT Family Medicine; ATTEND Family Medicine
DX: I50.9 Heart failure, unspecified (principal); J18.9 Pneumonia, unspecified organism; R79.89 Other specified abnormal findings of blood chemistry; N28.9 Disorder of kidney and ureter, unspecified; N18.9 Chronic kidney disease, unspecified; E88.09 Other disorders of plasma-protein metabolism, not elsewhere classified; R74.8 Abnormal levels of other serum enzymes; E80.6 Other disorders of bilirubin metabolism; M19.90 Unspecified osteoarthritis, unspecified site; D64.9 Anemia, unspecified; E03.9 Hypothyroidism, unspecified; E78.5 Hyperlipidemia, unspecified; Z51.5 Encounter for palliative care; F09 Unspecified mental disorder due to known physiological condition; K21.9 Gastro-esophageal reflux disease without esophagitis; R29.6 Repeated falls; Z79.899 Other long term (current) drug therapy; Z87.891 Personal history of nicotine dependence
CPT/HCPCS: 36415; 51703; 71010; 71020; 71275; 72100; 80053; 80061; 81001; 82247; 82248; 82272; 82550; 82553; 82607; 82728; 82746; 83036; 83540; 83550; 83605; 83735; 83880; 84443; 84484; 85025; 85379; 86140; 87040; 87070; 87205; 87804; 93005; 94640; 94664; 94761; 96365; 96375; 99285; A9270-GY; C9113; J1650; J1940; J2270; J2370; J2543; J3490; J7050; J7120; J7620-GY; Q9967; S0028